=== PATIENT | male | born 2005 | race Caucasian/White ===

== ENCOUNTER 2024-12-25 09:58 | Outpatient (CLI) | payer OTHER, SELFPAY ==
--- NOTE | ~2024-12-25 | XR_ITS ---
XR knee RT 3V 12/25/2024 10:06 INDICATION: Right lateral knee pain PROCEDURE: 3 views right knee COMPARISON: No prior studies for comparison. FINDINGS: Fracture, dislocation or subluxation is not identified. No significant joint effusion. The soft tissues appear within normal limits. No foreign bodies are identified. IMPRESSION: 1: NO ACUTE BONE OR JOINT ABNORMALITY IDENTIFIED. Reviewed, dictated and finalized at location B.
--- OUTSIDE RECORDS SUMMARY | 2024-12-25 10:24 | XMS_ITS | Clinical Summary ---
Author Organization [facility] Address [address] [place] [address] Phone Care Team Providers Care Edge Trimming Machine Operator Name Role Phone Roberto Cardenas MD Primary Care Provider [phone] Allergies No known active allergies Medications Cetirizine HCl (ZYRTEC PO) Take by mouth. Act sandra ibuprofen (MOTRIN) 200 MG Tablet Take 2 Tabs by mouth every 6 hours as needed for Fever or Pain. 60 Tab 8 Active HYDROcodone-lilly taminophen (NORCO) 5-325 MG Tablet Take 1 Tab by mouth every evening. 10 Tab 8 Active Additional Information Patient not taking.Reported on 09/20/2017 ondansetron (ZOFRAN) 4 MG Tablet Take 1-2 Tablets by mouth every 8 hours as needed for Nausea - 1st line. 10 Tablet 2 Active Social History Tobacco Use Types Packs/Day Years Used Date Smoking Tobacco: Never Smokeless Tobacco: Never Alcohol Use Standard Drinks/Week Comments No 0 (1 standard drink = 0.6 oz pur e alcohol) Sex and Gender Information Value Date Recorded Sex Assigned at Not on file Legal Sex Male 12:32 AM CDT Gender Identity Not on file Sexual Orientation Not on file Last Filed Vital Signs Vital Sign Reading Time Taken Comments Blood Pressure 138/76 04/12/2022 11:28 AM SNAP SHEARER Pulse 76 04/12/2022 12:44 PM SNAP SHEARER Temperature 35.6 C (96 F) 04/12/2022 11:28 AM SNAP SHEARER Respiratory Rate 17 04/12/2022 12:44 PM SNAP SHEARER Oxygen Saturation 100% 04/12/2022 12:44 PM SNAP SHEARER Inhaled Oxygen Concentration - - Weight 72.6 kg (160 lb) 04/12/2022 11:28 AM SNAP SHEARER Height 180.3 cm (5' 11) 04/12/2022 11:28 AM SNAP SHEARER Body Mass Index 22.32 04/12/2022 11:28 AM SNAP SHEARER Plan of Treatment Health Maintenance Due Date Last Done Comments Hepatitis C Virus (HCV) Screening 2003 Human Papillomavirus (HPV) Immunization (1 - Male 3-dose series) 10/08/2018 Meningococcal B Immunization (1 of 2 - Standard) 2019 SARS-COV-2 Immunization (3 - season) 2024 01/10/2021, 12/19/2020 Influenza Immunization (#1) 01/29/202503/01, 03/13/2020, 03/16/2019, Additional history exists Respiratory Syncytial Virus (RSV) Immunization (Adult) (1 - 1-dose 75+ series) 10/08/2078 Hepatitis B Immunization Completed 004, 2003, 2003 Pneumococcal Immunization Combined Aged Out 01/06/2005, 04/16/2004, 02/14/2004, Additional history exists No longer eligible based on patient's age to complete this topic Measles Mumps Rubella (MMR) Immunization Discontinued 11/15/2008, 10/14/2004 Polio (IPV) Immunization Discontinued 009, 01/06/2005, 02/14/2004, Additional history exists Varicella Immunization Discontinued 11/15/2008, 2004 DTaP/Tdap/Td Immunization Discontinued 2014, 11/15/2008, 01/06/2005, Additional history exists TdaP Immunization Completed 01/03/2015 Meningococcal Immunization (ACWY) Completed 01/10/2020, 01/03/2015 Rotavirus Immunization Aged Out No lo nger eligible based on patient's age to complete this topic Insurance Care Teams Edge Trimming Machine Operator Relationship Specialty Start Date End Date Roberto Cardenas MD [address] [place] [address] PCP - General Pediatrics 09/14/17
--- OUTSIDE RECORDS SUMMARY | 2024-12-25 10:24 | XMS_ITS | Referral Summary ---
Author Organization [facility] [address] Address [address] [place] [address] Phone Care Team Providers Care Hot Die Picker Name Role Phone Roberto Cardenas MD Primary Care Provider Allergies No known active allergies Medications ibuprofen (ADVIL,MOTRIN) 200 mg tab/cap Take 400 mg by mouth 09/14/2017 Active cetirizine (ZyrTEC) 10 mg tablet Take 10 mg by mouth daily Active albuterol HFA (ProAir HFA) 90 mcg/actuation inhaler Inhale 2 puffs every 3-6 hours as needed for wheezing. 1 each 6 08/20/2022 Active Active Problems Problem Noted Date Diagnosed Date Displaced fracture of shaft of fifth metacarpal bone, right hand, initial encounter for closed fracture 09/02/2021 Irritant contact dermatitis due to other agents 07/11/2018 Closed fracture of nasal bone with routine heali ng 09/16/2017 Intrinsic atopic dermatitis 09/14/2017 Tinea corporis 06/22/2017 Encounter for routine child health examination without abnormal findings 01/05/2017 Mild intermittent asthma without complication Hay fever 04/02/2012 Bronchial asthma 04/02/2012 Immunizations Immunization Administration Dates Next Due DTaP 5 Pertussis 11/15/2008, 5,04/16/2004,02/13,2003 Hep B / HiB 04/16/2004 Hep B, Adolescent or Pediatric 2003,05/11/ 2004 Hib (HbOC) 01/06/2005,02/14/2004,2003 IPV 11/15/2008, 5,02/14/2004,12/12 Influenza, Quadrivalent, Spl it, Intramuscular 03/29/2017,03/24/2016 Influenza, Quadrivalent, Spl it, Preservative Free, Intramuscular 04/20/2022,03/19/2021,03/13/2020,03/16,03/15/2018 Influenza, Trivalent, IM (MDV) 05/08/2015,2013 Influenza, Trivalent, Preser vative Free, Intramuscular 04/22/2011 Influenza, Unspecified 03/19/2021 MMR 11/15/2008,10/14/2004 Meningococcal Conjugate (Menveo) 01/10/2020 Meningococcal MCV4P (Menactra) 01/03/2015 Pfizer SARS-CoV-2 Monovalent Vaccination (12+ Yrs) PURPLE 01/10/2021 Pneumococcal Conjugate 7-Valent 01/07/20 05,04/16/2004,02/14/2004,12/12 Tdap 01/03/2015 Varicella 11/15/2008,10/14/2004 Social History Tobacco Use Types Packs/Day Years Used Date Smoking Tobacco: Never Smokeless Tobacco: Never Sex and Gender Information Value Date Recorded Sex Assigned at Not on file Legal 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 Gender Identity Not on file Sexual Orientation Not on file Last Filed Vital Signs Vital Sign Reading Time Taken Comments Blood Pressure 137/78 08/14/2022 1:26 PM CDT Pulse 74 08/14/2022 1:26 PM CDT Temperature 36.8 C (98.3 F) 05/01/2022 10:04 AM CORE ASSEMBLY SUPERVISOR Respiratory Rate 20 09/20/2021 11:5 5 AM CDT Oxygen Saturation 99% 01/13/2022 11: 53 AM CDT After 1 Minute of Rest Inhaled Oxygen Concentration - - Weight 82.6 kg (182 lb) 08/14/2022 1:26 PM CDT Height 179.1 cm (5' 10.5) 08/14/2022 1 :26 PM CDT Body Mass Index 25.75 08/14/2022 1:26 PM CDT Plan of Treatment Not on file Insurance * Guarantor: Chito Gomez Account Type Relation to Patient Date of Phone Billing Address Personal/Family Self [address] [place] [address] CHOICE PLUS * Guarantor: Chito Gomez Account Type Relation to Patient Date of Phone Billing Address Personal/Family Self [address] [place] [address] CHO[employer] PLUS * Guarantor: Chito Gomez Account Type Relation to Patient Date of Phone Billing Address Personal/Family Self [address] [place] [address] [facility] CHO[facility] CHOICE PLUS Care Teams Hot Die Picker Relationship Specialty Start Date End Date Zenker, Roberto P., MD [address] [place] [address] [place] [id number] PCP - General 08/28/16
--- OUTSIDE RECORDS SUMMARY | 2024-12-25 10:24 | XMS_ITS | Clinical Summary ---
Author Organization [facility] [address] Address [address] [place] [address] Phone Care Team Providers Care Roller Coaster Operator Name Role Phone Roberto Cardenas MD [...] 7-Valent 01/07/20 05,04/16/2004,02/14/2004,12/12 Tdap 01/03/2015 Varicella 11/15/2008,10/14/2004 Medical History Medical History Date Comments Allergic Asthma Family History Medical History Relation Name Comments No Known Problems Father No Known Problems Mother No Known Problems Other Relation Name Status Comments Father Mother Other Social History Tobacco Use Types Packs/Day Years Used Date Smoking Tobacco: Never Smokeless Tobacco: Never Sex and Gender Information Value Date Recorded Sex Assigned at Not on file Legal 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 Gender Identity Not on file Sexual Orientation Not on file Obstetrics History Last Filed Vital Signs Vital Sign Reading Time Taken Comments Blood Pressure 137/78 08/14/2022 1:26 PM CDT Pulse 74 08/14/2022 1:26 PM CDT Temperature 36.8 C (98.3 F) 05/01/2022 10:04 AM INVESTIGATIVE AGENT Respiratory Rate 20 09/20/2021 11:5 5 AM CDT Oxygen Saturation 99% 01/13/2022 11: 53 AM CDT After 1 Minute of Rest Inhaled Oxygen Concentration - - Weight 82.6 kg (182 lb) 08/14/2022 1:26 PM CDT Height 179.1 cm (5' 10.5) 08/14/2022 1 :26 PM CDT Body Mass Index 25.75 08/14/2022 1:26 PM CDT Plan of Treatment Health Maintenance Due Date Last Done Comments Depression Screening 2003 Hepatitis C Screening 2003 Pneumococcal vaccine <65 (1 of 1 - PPSV23) 10/08/2009 01/06/2005, 04/16/2004, 02/14/2004, Additional history exists HPV Vaccines (1 - Male 3-dos e series) 10/08/2018 Meningococcal B Vaccine (1 o f 2 - Standard) 2019 Regular Well Visit/Exam 18-64 01/13/2023 01/13/2022 Covid-19 Vaccine (3 - 2023-2 5 season) 2024 01/10/2021, 12/19/2020 DTaP/Tdap/Td Vaccine (7 - Td or Tdap) 01/03/2025 01/03/2015, 11/15/2008, 01/06/2005, Additional history exists Influenza Vaccine (#1) 2025 , 03/19/2021, 03/19/2021, Additional history exists Hepatitis B Screening Completed 04/16/2004 , 2003, 2003 Varicella Vaccines Completed 11/15/2008, 10/14/2004 Meningococcal Vaccine Completed 01/10/2020, 015 Insurance [facility] CHOICE PLUS CHOICE PLUS [facility] CHOICE PLUS Member Subscriber Plan / Payer (Ef fective 2018-Present) Name:Chito Gomez Relation to Subscriber:Child Name:CHITO GOMEZ Date of :1965 (Home) Address: [address] [place] [address] Payer ID:[id number] (NAIC) Type:[facility] HMO/PPO Address: [address] CHOICE PLUS Member Subscriber Plan / Payer (Ef fective 2020-Present) Name:Chito Gomez Relation to Subscriber:Child Name:CHITO GOMEZ Date of :1967 (Home) Address: [address] [place] [address] Payer ID:[id number] (NAIC) Type:[facility] HMO/PPO Address: [place] [phone] Care Teams Roller Coaster Operator Relationship Specialty Start Date End Date Roberto Cardenas MD [address] [place] [address] PCP - General 08/28/16
== END 2024-12-25 09:59 | disposition home or self-care (01) ==
PROVIDERS: PCP Nurse Practitioner Adult Health; Visit Provider Nurse Practitioner Adult Health
DX: M25.561 Pain in right knee (principal)
CPT/HCPCS: 73562